=== PATIENT | female | born 1960 | race Two or more races ===

== ENCOUNTER 2021-11-03 22:55 | Emergency (ER) | payer SELFPAY ==
[~2021-11-03] VITALS: Ht 160 cm; Wt 82.0 kg
[2021-11-03 23:08] VITALS: BP 155/61
[2021-11-04] MEDS ORDERED: BACITRACIN/POLYMYXIN B SULFATE OINT 15GM TOP ONE (00:45)
[2021-11-04] MEDS ORDERED: TETANUS, DIPHTHERIA, PERTUSSIS VAC/PF 0.5ML (>10YR OLD) IM ONE (00:45)
[2021-11-04] MEDS ORDERED: PETR1BAN35 TP (01:50)
[2021-11-04] MEDS ORDERED: BO1 TP (01:50)
[2021-11-04] MEDS ORDERED: POLY1BAN TP (01:50)
[2021-11-04] MEDS ORDERED: GAUZ1BAN31 MT (01:50)
== END 2021-11-04 02:19 | disposition home or self-care (01) ==
LOC: ER 22:55
DX: T25.211A Burn of second degree of right ankle, initial encounter (principal); Z85.9 Personal history of malignant neoplasm, unspecified; Z90.49 Acquired absence of other specified parts of digestive tract; Z90.710 Acquired absence of both cervix and uterus; Z90.89 Acquired absence of other organs; X10.2XXA Contact with fats and cooking oils, initial encounter; Y93.89 Activity, other specified; Y92.018 Other place in single-family (private) house as the place of occurrence of the external cause
CPT/HCPCS: 16020; 81025; 90471; 90715; 99283; Z7610